=== PATIENT | male | born 1945 | race Caucasian/White ===

== ENCOUNTER 2017-09-16 14:12 | Outpatient (CLI) | payer BC ==
--- NOTE | 2017-09-16 17:56 | MRI ---
CERVICAL SPINE MRI WITH AND WITHOUT CONTRAST: Date: 09/16/17 COMPARISON: 02/23/11. CLINICAL HISTORY: Cervical spondylosis with myelopathy. FINDINGS: Artifact from anterior metallic fusion involves the C4 and C5 segments with an intervening prostheti c device. There is no high grade central canal stenosis at C1-2 or C2-3. There is mild bilateral uncinate proc ess hypertrophy at C2-3 with mild narrowing of each neural foramen. C3-4: Broad based disc osteophyte complex results in mild narrowing of the central canal and mild ventral cord effacement. There is also uncinate process hypertrophy bilaterally with mild right neural jossue inal narrowing. No significant left foraminal stenosis. C4-5: Broad based posterior osteophyte ridge is present with mild ventral cord effacement and mild central canal stenosis. There is also mild bilateral neural foraminal stenosis. C5-6: Disc osteophyte complex is present with mild central canal narrowing. There is bilateral uncinate pr ocess hypertrophy with moderate biforaminal stenosis. C6-7: Mild narrowing of central canal and moderate biforaminal stenosis on the basis of broad based disc o steophyte complex. C7-T1: There is Grade I spondylolisthesis. Mild narrowing of the central canal is present. No high grade fo raminal stenosis. There is no pathologic intramedullary enhancement of the cervical spinal cord. No mass-producing enh ancement of vertebral canal. IMPRESSION: 1. Postoperative and multilevel degenerative changes of the cervical spine, as outlined above. 2. There is no pathologic intramedullary enhancement or mass-producing enhancement within the verte bral canal. POS: [facility]
== END 2017-09-16 14:13 | disposition home or self-care (01) ==
LOC: TBSIIMAG 14:12
PROVIDERS: ATTEND Neurological Surgery
DX: M47.12 Other spondylosis with myelopathy, cervical region (principal); Z98.890 Other specified postprocedural states
CPT/HCPCS: 72156

== ENCOUNTER 2021-04-30 12:42 | Outpatient (CLI) | payer MEDICARE, OTHER ==
[2021-04-30] MEDS ORDERED: Magnevist 469MG/ML 20 ML VIAL ONE ×2 (14:11)
== END 2021-04-30 12:43 | disposition home or self-care (01) ==
LOC: BICMRI 12:42
PROVIDERS: ATTEND Neurological Surgery
DX: M47.16 Other spondylosis with myelopathy, lumbar region (principal); R29.6 Repeated falls; M48.02 Spinal stenosis, cervical region; M54.6 Pain in thoracic spine; G95.89 Other specified diseases of spinal cord; M51.06 Intervertebral disc disorders with myelopathy, lumbar region; Z98.890 Other specified postprocedural states; M47.812 Spondylosis without myelopathy or radiculopathy, cervical region; I67.82 Cerebral ischemia
CPT/HCPCS: 70551; 72141; 72157; 72158; 82565; A9579

== ENCOUNTER → 2022-12-04 | Day surgery (SDC) | payer MEDICARE, OTHER ==
[~2022-12-04] MED LIST: Acetaminophen 500 MG TAB ONE; Acetaminophen 500 MG TAB PO SCH; cloNIDine 0.1 MG TAB ONE; diphenhydrAMINE 25 MG CAP ONE; diphenhydrAMINE 25 MG CAP PO SCH
[2022-12-04 15:52] VITALS: BP 156/70; TEMP 98.5
== END | disposition home or self-care (01) ==
LOC: ONC/OP 08:49
PROVIDERS: ATTEND Internal Medicine
PROC: 30233N1 Transfusion of Nonautologous Red Blood Cells into Peripheral Vein, Percutaneous Approach (ICD-10-PCS; principal; 2022-12-04)
DX: D64.9 Anemia, unspecified (principal)
CPT/HCPCS: 36430; 86850; 86900; 86901; P9016

== ENCOUNTER 2023-03-15 12:57 | Day surgery (SDC) | payer MEDICARE, OTHER ==
[2023-03-15] MEDS ORDERED: Acetaminophen 500 MG TAB PO SCH (13:15)
[2023-03-15] MEDS ORDERED: diphenhydrAMINE 25 MG CAP PO SCH (13:15)
[2023-03-15] MEDS ORDERED: diphenhydrAMINE 25 MG CAP ONE (14:52)
[2023-03-15] MEDS ORDERED: Acetaminophen 500 MG TAB ONE (14:52)
[2023-03-15] MEDS ORDERED: cloNIDine 0.1 MG TAB ONE (15:55)
[2023-03-15] MEDS ORDERED: cloNIDine 0.1 MG TAB PO SCH (16:00)
[2023-03-15 18:08] VITALS: BP 187/80; TEMP 97.9
== END 2023-03-15 18:09 | disposition home or self-care (01) ==
LOC: ONC/OP 12:57
PROVIDERS: ATTEND Internal Medicine
PROC: 30233N1 Transfusion of Nonautologous Red Blood Cells into Peripheral Vein, Percutaneous Approach (ICD-10-PCS; principal; 2023-03-15)
DX: D64.9 Anemia, unspecified (principal); D69.6 Thrombocytopenia, unspecified
CPT/HCPCS: 36430; 80053; 82248; 82607; 82728; 82746; 83010; 83540; 83550; 83615; 86850; 86900; 86901; 86920; P9016; 36415

== ENCOUNTER → 2023-03-19 | Day surgery (SDC) | payer MEDICARE, OTHER ==
[~2023-03-19] MED LIST changes: +cloNIDine 0.1 MG TAB PO SCH
[2023-03-19 14:08] VITALS: BP 173/76; TEMP 97.6
== END | disposition home or self-care (01) ==
LOC: ONC/OP 08:31
PROVIDERS: ATTEND Internal Medicine
PROC: 30233N1 Transfusion of Nonautologous Red Blood Cells into Peripheral Vein, Percutaneous Approach (ICD-10-PCS; principal; 2023-03-19)
DX: D64.9 Anemia, unspecified (principal)
CPT/HCPCS: 36430; 86850; 86900; 86901; 86920; P9016

== ENCOUNTER 2024-12-04 12:42 | Outpatient (CLI) | payer MEDICARE, OTHER ==
[~2024-12-04 12:42] MED LIST changes: -Acetaminophen 500 MG TAB ONE; -Acetaminophen 500 MG TAB PO SCH; +Iopamidol 370 76% 100 ML VIAL ONE; -cloNIDine 0.1 MG TAB ONE; -cloNIDine 0.1 MG TAB PO SCH; -diphenhydrAMINE 25 MG CAP ONE; -diphenhydrAMINE 25 MG CAP PO SCH
== END 2024-12-04 12:43 | disposition home or self-care (01) ==
LOC: BICCT 12:42
PROVIDERS: ATTEND Internal Medicine Cardiovascular Disease
DX: I65.23 Occlusion and stenosis of bilateral carotid arteries (principal)
CPT/HCPCS: 36415; 70498; 82565; Q9967